=== PATIENT | male | born 1970 | race Caucasian/White ===

== ENCOUNTER 2019-12-24 17:48 | Emergency (ER) | payer MEDICAID ==
[~2019-12-24] VITALS: Ht 175.3 cm; Wt 85.0 kg
[2019-12-24 18:07] VITALS: Ht 175.3 cm; Wt 85.0 kg
[2019-12-24 20:31] VITALS: BP 124/78
== END 2019-12-24 20:31 | disposition home or self-care (01) ==
LOC: ED 17:48
DX: M54.41 Lumbago with sciatica, right side (principal); R20.2 Paresthesia of skin
CPT/HCPCS: J1885; J2270; Q0162